=== PATIENT | female | born 1975 | race Caucasian/White ===

== ENCOUNTER → 2024-03-28 18:00 | Outpatient (REF) | payer OTHER, SELFPAY | LOC: HWWDC 18:00 | PROVIDERS: ATTENDING PHYSICIAN Nurse Practitioner | DX: Z12.31 Encounter for screening mammogram for malignant neoplasm of breast (principal) | CPT/HCPCS: 77063; 77067 ==

== ENCOUNTER 2024-08-24 08:06 | Day surgery (SDC) | payer OTHER, SELFPAY ==
[2024-08-23 08:14] VITALS: BMI 27.3
[2024-08-23 08:36] LABS: % Basophils 1.1 % (0-2); % Eosinophils 2.7 % (0-6); % Immature Granulocytes 0.4 % (0-0.5); % Lymphocytes 25.7 % (20.5-51.1); % Monocytes 11.1 % (1.7-9.3); Absolute Basophils 0.1 10^3/uL (0-0.2); Absolute Eosinophils 0.2 10^3/uL (0-0.7); Absolute Lymphocytes 1.4 10^3/uL (1.2-3.4); Absolute Monocytes 0.6 10^3/uL (0.1-0.6); Absolute Neutrophils 3.2 10^3/uL (1.4-6.5); Hematocrit 38.4 % (37.0-47.0); Hemoglobin 12.8 g/dL (12.0-16.0); Mean Corp Hgb Conc. 33.3 g/dL (33.0-37.0); Mean Corpuscular Hgb 26.7 pg (27.0-31.0); Mean Corpuscular Volume 80.2 fL (81.0-99.0); Mean Platelet Volume 9.8 fL (7.4-10.4); Nucleated Red Blood Cells % 0 %; Platelet Count 324 10^3/uL (130-400); Red Blood Cell Count 4.79 10^6/uL (4.20-5.40); Red Cell Dist. Width 21.1 % (11.5-14.5); White Blood Cell Count 5.5 10^3/uL (4.8-10.8)
[2024-08-23 09:56] LABS: ALT (SGPT) 27 U/L (0-35); AST (SGOT) 36 U/L (14-36); Albumin 4.4 g/dl (3.5-5.0); Alkaline Phosphatase 54 U/L (38-126); Blood Urea Nitrogen 17 mg/dl (7-17); Calcium 9.1 mg/dl (8.4-10.2); Carbon Dioxide 26 mmol/L (22-30); Chloride 102 mmol/L (98-107); Estimated Creatinine Clearance 70 ml/min; Glucose 89 mg/dl (70-99); Potassium 3.8 mmol/L (3.5-5.1); Sodium 141 mmol/L (135-145); Total Bilirubin 0.3 mg/dl (0.2-1.3); Total Protein 7.4 g/dl (6.3-8.2); eGFR > 60.00
--- NOTE | 2024-08-23 11:16 | HPS.HSE ---
Family Physician
-
Family Physician: ARABELLA Philip
Chief Complaint
-
Supraventricular tachycardia.
History of Present Illness
The patient is a 49 year old female presenting today for supraventricular tachycardia. She was initially diagnosed with this arrhythmia in 2011. She has been conservatively managed over the last few years with daily Diltiazem. She does
reports episodes of intermittent palpitations likely associated with this diagnosis. She recently visited [facility] for vacation and notes she went into supraventricular tachycardia with palpitations. Unfortunately, her arrhythmia did not dissipate with
vagal maneuvers. She presented to the ER and required adenosine for treatment. This episode was overwhelming for the patient. Given this, she is interested in pursuing a supraventricular tachycardia ablation at this time. She denies any current
complaints today such as chest pain, shortness of breath, nausea, vomiting, diarrhea, lightheadedness, dizziness, cough, sore throat, or fever.
Medical History
Past Medical History
Past Medical History: Reports Other
Additional Past Medical History:
1. Supraventricular tachycardia, pharmacological therapy with Diltiazem.
2. Hypertension.
3. Iron deficiency anemia, improving with oral iron.
4. Anxiety.
Past Surgical History: Reports Other
Additional Past Surgical History:
1. x2.
2. [place] teeth extraction.
Social History
Tobacco: Non-smoker
Alcohol: Other (Social)
Personal:
Living: Other (She lives with her and 2 children in a 2 story home. )
Family History
Family History: Not pertinent
Allergies / Home Medications
Allergy/Medication List:
Home medications:
1. Alprazolam 0.5 mg p.o. twice a day as needed.
2. Diltiazem 240 mg p.o. daily.
3. Ferrous sulfate 325 mg p.o. daily.
4. Lisinopril 10 mg p.o. daily.
5. Venlafaxine 150 mg p.o. daily.
6. Vitamin D3 1 capsule p.o. daily.
Allergies: No known allergies.
Review of Systems
-
A 12 point ROS was completed and negative except as noted: Yes
Physical Exam
Vital Signs
Blood pressure 140/94. Heart rate 94. Respirations 18. Pulse ox 100% on room air.
Height 5 feet, 2 inches. Weight 67.6 kg. BMI 27.3.
Physical Exam
General: Well Developed, Well Nourished and No Apparent Distress
HEENT: NormoCephalic, Moist mucous membranes and Atraumatic
Respiratory: Clear
Cardiac: Regular Rhythm
GI: Soft, Non Tender and Non Distended
Musculoskeletal: Normal Gait & Station
Skin: Warm and Dry
Neuro: AO x 3 and Nonfocal/grossly intact
Laboratory Results
-
08/23/24 08:20
08/23/24 08:20
Laboratory Results
Total Bilirubin 0.3 mg/dl (0.2-1.3) 08/23/24 08:20
AST 36 U/L (14-36) 08/23/24 08:20
ALT 27 U/L (0-35) 08/23/24 08:20
Alkaline Phosphatase 54 U/L (38-126) 08/23/24 08:20
EKG 08/23/2024: Normal sinus rhythm.
Impression/Plan
-
IMPRESSION/PLAN:
1. Supraventricular tachycardia - The patient is in need of a supraventricular tachycardia ablation with Dr. Alma Fernández on 08/24/2024. The benefits and risks of the procedure have been explained to the patient. The patient understands these risks
and wishes to proceed. She was initially advised to hold her Diltiazem 3 days prior to her ablation; however, she did take this medication on 08/22/2024 due to reported palpitations. Dr. Fernández was made aware. We will still proceed as planned. She
is aware to hold her Diltiazem 08/23/2024 and 08/24/2024.
[2024-08-24] VITALS (8 sets, daily range): BP systolic 125–147; BP diastolic 85–96; BMI 27.0
[2024-08-24 08:31] LABS: HCG, Urine Qualitative Screen Negative
--- NOTE | 2024-08-24 12:40 | ITS.CL.ABL ---
Life Skills Educator - Ablation
Ablation
Procedure Report:
Supra-Ventricular Tachycardia Ablation:
Ms. Correia is a very pleasant�49 yr old woman with medical history significant for palpitations and was diagnosed with supra-ventricular tachycardia (SVT) with EKG showed short RP tachycardia. He presented today to the EP lab for electrophysiology
(EP) study of the heart and possible ablation of the SVT.
Date of Procedure:
08/24/2024
�
Indications: Supra-Ventricular Tachycardia (SVT)
�
Pre-Operative Diagnosis: Supra-Ventricular Tachycardia (SVT)
�
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
�
Procedure Performed: EP study and SVT ablation
�
Performing Physician:
Alma Fernández MD
��
Anesthesia:
See anesthesia records
�
Detailed Description of the Procedure:
Written informed consent was obtained from the patient after a full explanation of the risks and benefits of the procedure including the risks of sedation and anesthesia. The patient was brought to the electrophysiology laboratory in stable
condition in fasting state. Continuous electrocardiographic and hemodynamic monitoring was initiated.
The initial rhythm was normal sinus.
The procedure site was meticulously prepared with surgical scrub and allowed to dry with no pooling. Sterile draping was applied to cover the procedure site. The image intensifier was draped with sterile bag and positioned over the patient.
Sheath and Catheter Placement:
After infusion of local anesthetic, vascular access was obtained under ultrasound guidance and sheaths were placed over guide wire as detailed below.
�
Sheaths:
- � � � 6 Fr sheath in right femoral vein
- � � � 7 Fr sheath in right femoral vein
- � � � 8 Fr that was later upgraded to Agilis sheath in right femoral vein
�
Catheters:
- � � � 6Fr - Vinod Quad-cath at RVa
- � � � Pentaray mapping catheter in RA and CS
- � � � Bard Decapolar catheter - at locations of CS
- � � � [employer] Martinez EZ steer non-irrigated 4 mm ablation catheter
�
�Following the sheaths placement, patient was given Heparin bolus and EP study was done.
Baseline intervals (milliseconds):
PP interval (baseline cycle length): 680
P wave duration:126
HI interval:182
QRS duration: 76
QT interval: 460
�
AH interval: 86
His duration: 18
HV interval: 47
Q onset to RVa: 0
��
Sinus Node Function:
HRA pacing showed adequate threshold. The sinus node functions are within acceptable normal range.
�
Atrioventricular Taylor Function:
Atrial stimulation with incremental pacing intervals was performed from the high right atrium (HRA) and right ventricular apex (RVa) and antegrade and retrograde atrioventricular (AV) block cycle lengths were determined. The antegrade AV Wenckebach
was noted at 290 msec.
�
Programmed atrial stimulation was performed with drive train of 600 msec followed by a single atrial extra-stimulus and the AV taylor and the atrial ERPs were determined. The ERP was difficult to assess due to easily start of SVT with program
stimulation.
�
SVT Arrhythmia Induction:
Easily inducible SVT noted.
Tachycardia:
The tachycardia was studies with a cycle length of 350 msec. The tachycardia was concentric and had short VA time. The tachycardia was entrained from the ventricle and the proximal CS. The ventricle was out of the tachycardia cycle and attempt from
the entrainment from CS maneuver terminated the tachycardia. Following observations were noted. �
a)�Simultaneous A and V (Septal VA interval of <70 ms was at 40msec).�
b) Ventricular Overdrive pacing demonstrated a VAHV�response�
c) SA-VA >85 (180 � 40)
d) PPI-TCL >115msec (430 msec)
e) HIS synchronous PVC dissociated the RV from the tachycardia
f) The atrial entrainment showed STANISLAV response ruling out atrial tachycardia
j) The tachycardia was terminated with early PAC or PVC by engaging the AV node showing dependence on the AV node.
�
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
Electroanatomic 3D Mapping (EAM) and Ablation:
Patient was given Heparin bolus. The HRA was removed and was upgraded to Agilis sheath for ablation catheter. EAM and radiofrequency ablation was performed using a non-irrigation, EZ steer 4 mm radiofrequency ablation catheter. 3D mapping was
performed with Carto 3 software. Cardiac anatomy as established. His cloud was established. The triangle of [place] was marked with ablation catheter. There was a narrow area between the anterior border of the CS and the tricuspid annulus.
A slow pathway AVNRT ablation was pursued. Radiofrequency ablation lesions were applied to the anatomic slow pathway area targeting spike and dome electrograms with > 1:7 A:V ratio just below the His cloud. There were multitude of Junctional beats
with 1:1 VA relationship noted. There was no non-conducted beat.
Post Ablation EP study:
The post ablation EP study showed normal AV conduction. The HI was 160msec; QRS was 86msec; AH was 92msec with HV of 45msec. There was no sign of AV block noted.
There was decremental conduction noted via the AV node. There was no jump present now after the ablation. There was no echo beats and despite aggressive measures there was no inducible tachycardia. The AV node ERP was <600/210 and atrial ERP was
600/210.
No tachycardia was inducible now.
There was a reproducible beat noted after the drive train concerning for an ECHO beat. Further ablation was performed. The beats was still seen and was mapped that showed it to be an ectopic atrial beat from the floor of the RA and not ECHO beat
from the fast pathway. The possibility of slow-slow AVNRT was entertained and further ablation was placed. �
The ventricular stimulation showed normal retrograde conduction via the AV node. The retrograde Wenckebach was 290msec.
The AV taylor functions are deemed within normal range with easily inducible tachycardia.
�
Ventricular Function:
Single ventricular extrastimuli showed V conduction was normal with below 500 msec ventricular conduction. The ventricular electrical functions are within acceptable range.
Procedure End
Following the completion of the EP study, catheters were removed. The sheaths were removed and hemostasis achieved with VASCADE and manual compression.
Recommendations:
��������� Likely discharge home today.
��������� No change in home medications.
�
Estimated Blood loss:
<5 cc
�
Specimens Removed:
None.
�
Implants / Devices:
None
�
Urine output:
None
�
Packs / Drains/ Tubes:
None
�
Instrument / Sponge Count Correct:
Yes
�
Complications of the Procedure:
None
�
Condition of Patient at Time of Transfer:
Hemodynamically stable with no neurological or vascular compromise.
Summary:
Electrophysiology study with induction of atrioventricular taylor re-entrant tachycardia (AVNRT) and successful modification of slow pathway.
PAC mapping
[2024-08-24] MEDS: CARDIZEM CD 240 MG PO (14:15)
== END 2024-08-24 15:05 | disposition home or self-care (01) ==
LOC: CATH 08:06
PROVIDERS: ATTENDING PHYSICIAN Internal Medicine Cardiovascular Disease; FAMILY PHYSICIAN Nurse Practitioner; OTHER PHYSICIAN Internal Medicine Cardiovascular Disease
DX: I47.19 Other supraventricular tachycardia (principal); I10 Essential (primary) hypertension; D50.9 Iron deficiency anemia, unspecified; F41.9 Anxiety disorder, unspecified; Z79.899 Other long term (current) drug therapy
CPT/HCPCS: C1894; C1730; C1766; C1732; 36415; 80053; 81025; 85025; 93005; 93653; C1760

== ENCOUNTER → 2025-05-31 15:19 | Outpatient (REF) | payer OTHER, SELFPAY | LOC: HWWDC 15:19 | DX: Z12.31 Encounter for screening mammogram for malignant neoplasm of breast (principal) | CPT/HCPCS: 77063; 77067 ==